=== PATIENT | male | born 1960 | race Caucasian/White ===

== ENCOUNTER 2018-04-25 12:06 | Inpatient (IN) | payer MEDICARE ==
[2018-04-25] VITALS (43 sets, daily range): BP systolic 81–185; BP diastolic 22–133
[~2018-04-25] VITALS: Ht 182.9 cm; Wt 86.2 kg
[2018-04-25] MEDS ORDERED: MIDAZOLAM HCL 2 MG/2 ML VIAL ONE (12:26)
[2018-04-25 12:56] LABS: CHLORIDE 101 mEq/L (98-107)
[2018-04-25 13:00] LABS: BASOPHILS % 0.2 % (0.0-2.0); EOSINOPHILS % 0.1 % (0.0-5.0); ETHANOL BLOOD < 10 mg/dL; HEMOGLOBIN. 13.2 g/dL (14.0-18.0); MEAN CORPUSCULAR HEMOGLOBIN 29.7 pg (28.0-32.0); MEAN CORPUSCULAR VOLUME 92.8 fL (80.0-94.0); MEAN PLATELET VOLUME 8.6 fl (7.4-10.4); MONOCYTES % 11.1 % (2.0-8.0); NEUTROPHILS % 79.6 % (40.0-76.0); PLATELET 295 x1000/uL (130-400); RED BLOOD CELL COUNT 4.42 mill/uL (4.7-6.1); RED CELL DISTRIBUTION WIDTH 14.9 % (11.6-14.6)
[2018-04-25 13:03] LABS: CLARITY URINE CLOUDY (CLEAR); COLOR URINE YELLOW (YELLOW); KETONES URINE TRACE (NEGATIVE); LEUKOCYTE ESTERASE URINE NEGATIVE (NEGATIVE); NITRITE URINE NEGATIVE (NEGATIVE); OCCULT BLOOD URINE 2+ (NEGATIVE); PROTEIN URINE TRACE (NEGATIVE); SPECIFIC GRAVITY URINE 1.024 (1.005-1.030); UROBILINOGEN URINE 0.2 E.U./dL (0.2-1.0)
[2018-04-25] MEDS ORDERED: VECURONIUM BROMIDE 10 MG/VIAL IV NR (13:15)
[2018-04-25] MEDS ORDERED: ETOMIDATE 2MG/ML 10ML VIAL IV NR (13:15)
[2018-04-25] MEDS ORDERED: MIDAZOLAM HCL 50 MG in DEXTROSE 5% WATER 40 ML IV NR (13:15)
[2018-04-25] MEDS ORDERED: CEFTRIAXONE 1 G PREMIX 50 ML IV NR (13:15)
[2018-04-25] MEDS ORDERED: SODIUM CHLORIDE 0.9% 1000ML BAG (SEPSIS BOLUS) IV ONE (13:15)
[2018-04-25 13:17] LABS: *AMPHETAMINES SCREEN URINE NEGATIVE (NEGATIVE); *BARBITURATES SCREEN URINE NEGATIVE (NEGATIVE); *BENZODIAZEPINES SCREEN URINE PRESUMTIVE POSITIVE (NEGATIVE)
[2018-04-25 13:18] LABS: *COCAINE SCREEN URINE NEGATIVE (NEGATIVE); CANNABINOID URINE SCREEN PRESUMTIVE POSITIVE (NEGATIVE); METHADONE URINE SCREEN NEGATIVE (NEGATIVE); OPIATES URINE SCREEN PRESUMTIVE POSITIVE (NEGATIVE); PHENCYCLIDINE URINE SCREEN NEGATIVE (NEGATIVE)
[2018-04-25] MEDS ORDERED: SODIUM CHLORIDE 0.9% 2,730 ML IV SCH (13:30)
[2018-04-25] MEDS ORDERED: VECURONIUM BROMIDE 10 MG/VIAL IV ONE (15:03)
[2018-04-25] MEDS ORDERED: ETOMIDATE 2MG/ML 10ML VIAL IV ONE (15:03)
[2018-04-25] MEDS ORDERED: MIDAZOLAM HCL 100 MG in DEXT 5% WATER 80 ML IV PRN (15:15)
[2018-04-25 15:30] LABS: BG BASE EXCESS -7.5 mmol/L (-2.0-2.0); BG CARBOXYHEMOGLOBIN 0.6 % (0.5-1.5); BG DEOXYHEMOGLOBIN 0.8 % (0.0-5.0); BG FRACTION INSPIRED OXYGEN 100; BG HCO3 ACT 20.4 mmol/L (22.0-26.0); BG METHEMOGLOBIN 0.3 % (0.0-1.5); BG OXYGEN SATURATION 99.2 % (92.0-98.5); BG OXYHEMOGLOBIN 98.3 % (94.0-97.0); BG PCO2 51.2 mmHg (35.0-45.0); BG PH 7.219 (7.350-7.450); BG PO2 299.4 mmHg (75.0-100.0); BG SAMPLE SITE RIGHT RADIAL; BG TIDAL VOLUME(mL) 600 mL; BG VENT MODE VENT - A/C; BG VENT RATE 14 set
[2018-04-25 15:50] LABS: D-DIMER 1.78 mg/L FEU (<0.50); PARTIAL THROMBOPLASTIN TIME 30.1 sec (23.4-31.0); PROTHROMBIN TIME 10.3 sec (9.1-11.1)
[2018-04-25] MEDS: LABETALOL HCL 100MG TABLET NG SCH (16:00)
[2018-04-25] MEDS: MIDAZOLAM HCL 100 MG in DEXT 5% WATER 80 ML IV PRN (16:02)
[2018-04-25] MEDS: FENTANYL CITRATE/PF 500 MCG in SODIUM CHLORIDE 0.9% 40 ML IV PRN (16:02)
[2018-04-25] MEDS ORDERED: IPRATROPIUM/ALBUTEROL 0.5-3(2.5)MG/3ML NEB HHN PRN (16:15)
[2018-04-25] MEDS ORDERED: CEFEPIME 1,000 MG in DEXTROSE 5% WATER 50 ML IV SCH (17:00)
[2018-04-25] MEDS ORDERED: METRONIDAZOLE 500 MG PREMIX 100 ML IV SCH (17:00)
[2018-04-25] MEDS: PIPERACILLIN/TAZ 3.375G PREMIX 50 ML IV SCH (17:08)
[2018-04-25] MEDS: DEXT 5%/0.45% NACL 1000ML 1,000 ML IV SCH (17:08)
[2018-04-25] MEDS ORDERED: NOREPINEPHRINE 4 MG in DEXT 5% WATER 246 ML IV PRN (18:15)
[2018-04-25 18:57] LABS: HEPATITIS A AB IGM NEGATIVE (NEGATIVE)
[2018-04-25] MEDS ORDERED: VANCOMYCIN 2,000 MG in DEXT 5% WATER 400 ML IV NR (19:00)
[2018-04-25 19:01] LABS: HEPATITIS B SURFACE ANTIGEN REACTIVE PEND CONFIR
[2018-04-25] MEDS: IPRATROPIUM/ALBUTEROL 0.5-3(2.5)MG/3ML NEB HHN SCH (20:32)
[2018-04-25] MEDS: BUDESONIDE 0.5MG/2ML NEB HHN SCH (20:32)
[2018-04-26] VITALS (91 sets, daily range): BP systolic 101–148; BP diastolic 63–100
[2018-04-26] MEDS: PIPERACILLIN/TAZ 3.375G PREMIX 50 ML IV SCH ×4 (00:06→17:32)
[2018-04-26] MEDS: FENTANYL CITRATE/PF 500 MCG in SODIUM CHLORIDE 0.9% 40 ML IV PRN ×3 (00:09→19:02)
[2018-04-26] MEDS: DEXT 5%/0.45% NACL 1000ML 1,000 ML IV SCH ×3 (05:34→22:24)
[2018-04-26] MEDS: LABETALOL HCL 100MG TABLET NG SCH ×2 (05:34→17:33)
[2018-04-26] MEDS: ACETYLCYSTEINE 100MG/ML 10% VIAL 4ML INH SCH ×2 (07:38→13:21)
[2018-04-26] MEDS: IPRATROPIUM/ALBUTEROL 0.5-3(2.5)MG/3ML NEB HHN SCH ×3 (07:38→21:13)
[2018-04-26] MEDS: BUDESONIDE 0.5MG/2ML NEB HHN SCH ×2 (07:38→21:14)
[2018-04-26] MEDS: MIDAZOLAM HCL 100 MG in DEXT 5% WATER 80 ML IV PRN (08:28)
[2018-04-26 09:38] LABS: BG BASE EXCESS 3.5 mmol/L (-2.0-2.0); BG CARBOXYHEMOGLOBIN 0.9 % (0.5-1.5); BG DEOXYHEMOGLOBIN 3.9 % (0.0-5.0); BG FRACTION INSPIRED OXYGEN 55; BG HCO3 ACT 28.5 mmol/L (22.0-26.0); BG METHEMOGLOBIN 0.3 % (0.0-1.5); BG OXYGEN SATURATION 96.1 % (92.0-98.5); BG OXYHEMOGLOBIN 94.9 % (94.0-97.0); BG PCO2 44.6 mmHg (35.0-45.0); BG PH 7.423 (7.350-7.450); BG PO2 79.4 mmHg (75.0-100.0); BG SAMPLE SITE RIGHT RADIAL; BG TIDAL VOLUME(mL) 600 mL; BG VENT MODE VENT - A/C; BG VENT RATE 16 set
[2018-04-26] MEDS: FAMOTIDINE 20MG/2ML VIAL IV SCH (12:19)
[2018-04-26] MEDS: ENOXAPARIN 40MG/0.4ML SYR SUBCUT SCH (12:20)
[2018-04-26] MEDS ORDERED: VANCOMYCIN 1 G PREMIX 200 ML IV SCH (13:00)
[2018-04-26] MEDS ORDERED: VANCOMYCIN 1500MG in DEXTROSE 5% WATER 250ML IV SCH (18:00)
[2018-04-27] VITALS (51 sets, daily range): BP systolic 99–155; BP diastolic 65–94
[2018-04-27] MEDS: PIPERACILLIN/TAZ 3.375G PREMIX 50 ML IV SCH ×4 (00:15→13:42)
[2018-04-27] MEDS: IPRATROPIUM/ALBUTEROL 0.5-3(2.5)MG/3ML NEB HHN SCH ×5 (01:02→20:12)
[2018-04-27] MEDS: ACETYLCYSTEINE 100MG/ML 10% VIAL 4ML INH SCH ×2 (01:03→08:47)
[2018-04-27] MEDS: MIDAZOLAM HCL 100 MG in DEXT 5% WATER 80 ML IV PRN (01:46)
[2018-04-27] MEDS: LABETALOL HCL 100MG TABLET NG SCH ×2 (05:59→18:00)
[2018-04-27] MEDS: FENTANYL CITRATE/PF 500 MCG in SODIUM CHLORIDE 0.9% 40 ML IV PRN (06:20)
[2018-04-27 07:12] LABS: BASOPHILS % 0.5 % (0.0-2.0); HEMATOCRIT. 32.2 % (42.0-52.0); HEMOGLOBIN. 10.8 g/dL (14.0-18.0); LYMPHOCYTES % 7.8 % (20.0-50.0); MEAN CORPUSCULAR HEMOGLOBIN 29.8 pg (28.0-32.0); MEAN CORPUSCULAR VOLUME 88.3 fL (80.0-94.0); MEAN PLATELET VOLUME 9.3 fl (7.4-10.4); NEUTROPHILS % 83.7 % (40.0-76.0); PLATELET 160 x1000/uL (130-400); RED BLOOD CELL COUNT 3.64 mill/uL (4.7-6.1); RED CELL DISTRIBUTION WIDTH 14.5 % (11.6-14.6)
[2018-04-27 07:30] LABS: CHLORIDE 106 mEq/L (98-107)
[2018-04-27 07:40] LABS: PHOSPHORUS 1.1 mg/dL (2.5-4.9)
[2018-04-27 08:45] LABS: BG BASE EXCESS 2.9 mmol/L (-2.0-2.0); BG CARBOXYHEMOGLOBIN 0.3 % (0.5-1.5); BG DEOXYHEMOGLOBIN 1.6 % (0.0-5.0); BG FRACTION INSPIRED OXYGEN 50; BG HCO3 ACT 26.3 mmol/L (22.0-26.0); BG METHEMOGLOBIN 0.3 % (0.0-1.5); BG OXYGEN SATURATION 98.4 % (92.0-98.5); BG OXYHEMOGLOBIN 97.8 % (94.0-97.0); BG PCO2 35.8 mmHg (35.0-45.0); BG PH 7.484 (7.350-7.450); BG PO2 127.4 mmHg (75.0-100.0); BG SAMPLE SITE RIGHT RADIAL; BG TIDAL VOLUME(mL) 600 mL; BG VENT MODE VENT - A/C; BG VENT RATE 16 set
[2018-04-27] MEDS: BUDESONIDE 0.5MG/2ML NEB HHN SCH ×2 (08:47→20:12)
[2018-04-27] MEDS: FAMOTIDINE 20MG/2ML VIAL IV SCH ×2 (08:57→20:48)
[2018-04-27 09:08] LABS: HIV SCREEN 4G Non Reactive (Non Reactive)
[2018-04-27] MEDS: DEXT 5%/0.45% NACL 1000ML 1,000 ML IV SCH ×2 (09:41→20:48)
[2018-04-27] MEDS ORDERED: VANCOMYCIN 1250MG in DEXTROSE 5% WATER 250ML IV SCH (12:00)
[2018-04-27] MEDS: ENOXAPARIN 40MG/0.4ML SYR SUBCUT SCH (13:14)
[2018-04-27] MEDS ORDERED: RISPERIDONE 0.25MG TABLET PO SCH (13:52)
[2018-04-27] MEDS ORDERED: POTASSIUM CHLORIDE 20MEQ/PACKET NG NR (13:53)
[2018-04-27 14:06] LABS: BG CARBOXYHEMOGLOBIN 0.4 % (0.5-1.5); BG DEOXYHEMOGLOBIN 3.7 % (0.0-5.0); BG FRACTION INSPIRED OXYGEN 40; BG HCO3 ACT 28.8 mmol/L (22.0-26.0); BG OXYGEN SATURATION 96.3 % (92.0-98.5); BG OXYHEMOGLOBIN 95.9 % (94.0-97.0); BG PCO2 39.3 mmHg (35.0-45.0); BG PH 7.483 (7.350-7.450); BG SAMPLE SITE RIGHT RADIAL; BG TOTAL HEMOGLOBIN 10.9 g/dL (12.0-18.0); BG VENT MODE VENT - CPAP
[2018-04-27] MEDS ORDERED: POTASSIUM PHOS,M-BASIC-D-BASIC 30 MMOL in DEXT 5% WATER 500 ML IV NR (14:30)
[2018-04-27] MEDS ORDERED: RACEPINEPHRINE 2.25% 0.5ML NEB VIAL HHN NR (14:40)
[2018-04-27] MEDS ORDERED: RACEPINEPHRINE 2.25% 0.5ML NEB VIAL HHN PRN (14:45)
[2018-04-27] MEDS ORDERED: HALOPERIDOL 5MG TABLET PO NR (15:15)
[2018-04-27] MEDS ORDERED: HALOPERIDOL LACTATE 5MG/ML VIAL IM NR ×3 (15:30→16:15)
[2018-04-27] MEDS ORDERED: LORAZEPAM 2MG/ML CPJ IV NR (16:15)
[2018-04-27] MEDS ORDERED: DIPHENHYDRAMINE 50MG/ML VIAL IV NR (16:45)
[2018-04-27 17:40] LABS: BG BASE EXCESS 2.9 mmol/L (-2.0-2.0); BG CARBOXYHEMOGLOBIN 0.2 % (0.5-1.5); BG DEOXYHEMOGLOBIN 2.8 % (0.0-5.0); BG FRACTION INSPIRED OXYGEN 100; BG HCO3 ACT 30.6 mmol/L (22.0-26.0); BG METHEMOGLOBIN 0.1 % (0.0-1.5); BG OXYGEN SATURATION 97.2 % (92.0-98.5); BG OXYHEMOGLOBIN 96.9 % (94.0-97.0); BG PCO2 62.8 mmHg (35.0-45.0); BG PH 7.306 (7.350-7.450); BG PO2 112.7 mmHg (75.0-100.0); BG SAMPLE SITE RIGHT RADIAL; BG VENT MODE MASK - NRB
[2018-04-27 19:30] LABS: BG BASE EXCESS 5.2 mmol/L (-2.0-2.0); BG CARBOXYHEMOGLOBIN 0.4 % (0.5-1.5); BG DEOXYHEMOGLOBIN 6.8 % (0.0-5.0); BG FRACTION INSPIRED OXYGEN 40; BG HCO3 ACT 28.9 mmol/L (22.0-26.0); BG METHEMOGLOBIN 0.1 % (0.0-1.5); BG OXYGEN SATURATION 93.2 % (92.0-98.5); BG OXYHEMOGLOBIN 92.7 % (94.0-97.0); BG PH 7.487 (7.350-7.450); BG PO2 62.1 mmHg (75.0-100.0); BG SAMPLE SITE RIGHT RADIAL; BG TIDAL VOLUME(mL) 600 mL; BG TOTAL HEMOGLOBIN 11.4 g/dL (12.0-18.0); BG VENT MODE VENT - A/C; BG VENT RATE 14 set
[2018-04-27] MEDS: VANCOMYCIN 1 G PREMIX 200 ML IV SCH (20:47)
[2018-04-28] VITALS (92 sets, daily range): BP systolic 102–184; BP diastolic 60–100
[2018-04-28] MEDS: PIPERACILLIN/TAZ 3.375G PREMIX 50 ML IV SCH ×4 (00:17→18:23)
[2018-04-28] MEDS: IPRATROPIUM/ALBUTEROL 0.5-3(2.5)MG/3ML NEB HHN SCH ×4 (01:29→21:13)
[2018-04-28] MEDS: ACETYLCYSTEINE 100MG/ML 10% VIAL 4ML INH SCH ×3 (01:30→13:29)
[2018-04-28] MEDS: FENTANYL CITRATE/PF 500 MCG in SODIUM CHLORIDE 0.9% 40 ML IV PRN ×3 (02:32→16:47)
[2018-04-28] MEDS: VANCOMYCIN 1 G PREMIX 200 ML IV SCH ×2 (03:27→12:11)
[2018-04-28] MEDS: DEXT 5%/0.45% NACL 1000ML 1,000 ML IV SCH ×2 (04:48→18:23)
[2018-04-28] MEDS: MIDAZOLAM HCL 100 MG in DEXT 5% WATER 80 ML IV PRN (04:48)
[2018-04-28] MEDS: LABETALOL HCL 100MG TABLET NG SCH ×2 (05:22→18:00)
[2018-04-28 06:05] LABS: CHLORIDE 107 mEq/L (98-107)
[2018-04-28 06:13] LABS: PHOSPHORUS 2.9 mg/dL (2.5-4.9)
[2018-04-28 07:36] LABS: BG BASE EXCESS 5.8 mmol/L (-2.0-2.0); BG CARBOXYHEMOGLOBIN 0.6 % (0.5-1.5); BG DEOXYHEMOGLOBIN 1.2 % (0.0-5.0); BG HCO3 ACT 30.3 mmol/L (22.0-26.0); BG METHEMOGLOBIN 0.1 % (0.0-1.5); BG OXYGEN SATURATION 98.8 % (92.0-98.5); BG OXYHEMOGLOBIN 98.1 % (94.0-97.0); BG PH 7.456 (7.350-7.450); BG PO2 155.1 mmHg (75.0-100.0); BG SAMPLE SITE RIGHT RADIAL; BG TIDAL VOLUME(mL) 600 mL; BG TOTAL HEMOGLOBIN 10.6 g/dL (12.0-18.0); BG VENT MODE VENT - A/C; BG VENT RATE 14 set
[2018-04-28] MEDS: BUDESONIDE 0.5MG/2ML NEB HHN SCH ×2 (07:58→21:15)
[2018-04-28] MEDS: RISPERIDONE 0.25MG TABLET PO SCH (08:46)
[2018-04-28] MEDS: FAMOTIDINE 20MG/2ML VIAL IV SCH ×2 (08:47→23:01)
[2018-04-28] MEDS: ENOXAPARIN 40MG/0.4ML SYR SUBCUT SCH (12:23)
[2018-04-28] MEDS ORDERED: BUDESONIDE 0.5MG/2ML NEB ONE (21:22)
[2018-04-29] VITALS (91 sets, daily range): BP systolic 103–154; BP diastolic 31–98
[2018-04-29] MEDS: PIPERACILLIN/TAZ 3.375G PREMIX 50 ML IV SCH ×4 (00:05→19:04)
[2018-04-29] MEDS: ACETYLCYSTEINE 100MG/ML 10% VIAL 4ML INH SCH ×3 (00:57→14:03)
[2018-04-29] MEDS: IPRATROPIUM/ALBUTEROL 0.5-3(2.5)MG/3ML NEB HHN SCH ×4 (00:57→20:35)
[2018-04-29] MEDS: MIDAZOLAM HCL 100 MG in DEXT 5% WATER 80 ML IV PRN ×2 (01:21→22:57)
[2018-04-29] MEDS: DEXT 5%/0.45% NACL 1000ML 1,000 ML IV SCH ×2 (03:35→11:50)
[2018-04-29] MEDS: FENTANYL CITRATE/PF 500 MCG in SODIUM CHLORIDE 0.9% 40 ML IV PRN ×2 (05:43→16:05)
[2018-04-29] MEDS: LABETALOL HCL 100MG TABLET NG SCH ×2 (05:48→19:05)
[2018-04-29] MEDS: FAMOTIDINE 20MG/2ML VIAL IV SCH ×2 (08:48→21:39)
[2018-04-29] MEDS: RISPERIDONE 0.25MG TABLET PO SCH (08:48)
[2018-04-29 09:15] LABS: BG BASE EXCESS 7.5 mmol/L (-2.0-2.0); BG CARBOXYHEMOGLOBIN 0.9 % (0.5-1.5); BG FRACTION INSPIRED OXYGEN 60; BG HCO3 ACT 31.9 mmol/L (22.0-26.0); BG METHEMOGLOBIN 0.1 % (0.0-1.5); BG PCO2 44.6 mmHg (35.0-45.0); BG PH 7.472 (7.350-7.450); BG PO2 144.5 mmHg (75.0-100.0); BG SAMPLE SITE RIGHT BRACHIAL; BG TIDAL VOLUME(mL) 600 mL; BG VENT MODE VENT - A/C; BG VENT RATE 14 set
[2018-04-29] MEDS: ENOXAPARIN 40MG/0.4ML SYR SUBCUT SCH (13:49)
[2018-04-29] MEDS ORDERED: POTASSIUM CHLORIDE 20MEQ/PACKET PO NR (16:30)
[2018-04-30] VITALS (83 sets, daily range): BP systolic 94–174; BP diastolic 59–101
[2018-04-30] MEDS: PIPERACILLIN/TAZ 3.375G PREMIX 50 ML IV SCH ×5 (00:39→23:21)
[2018-04-30] MEDS: ACETYLCYSTEINE 100MG/ML 10% VIAL 4ML INH SCH ×4 (00:51→22:00)
[2018-04-30] MEDS: IPRATROPIUM/ALBUTEROL 0.5-3(2.5)MG/3ML NEB HHN SCH ×4 (00:51→20:15)
[2018-04-30 06:12] LABS: BASOPHILS % 0.5 % (0.0-2.0); EOSINOPHILS % 0.8 % (0.0-5.0); HEMATOCRIT. 31.8 % (42.0-52.0); HEMOGLOBIN. 10.7 g/dL (14.0-18.0); LYMPHOCYTES % 11.2 % (20.0-50.0); MEAN CORPUSCULAR HEMOGLOBIN 29.9 pg (28.0-32.0); MEAN CORPUSCULAR VOLUME 89.2 fL (80.0-94.0); MEAN PLATELET VOLUME 8.2 fl (7.4-10.4); MONOCYTES % 10.3 % (2.0-8.0); NEUTROPHILS % 77.2 % (40.0-76.0); PLATELET 203 x1000/uL (130-400); RED BLOOD CELL COUNT 3.57 mill/uL (4.7-6.1); RED CELL DISTRIBUTION WIDTH 14.1 % (11.6-14.6)
[2018-04-30 06:15] LABS: CHLORIDE 109 mEq/L (98-107)
[2018-04-30] MEDS: LABETALOL HCL 100MG TABLET NG SCH ×2 (06:22→18:00)
[2018-04-30] MEDS: DEXT 5%/0.45% NACL 1000ML 1,000 ML IV SCH ×3 (06:24→18:18)
[2018-04-30] MEDS: FENTANYL CITRATE/PF 500 MCG in SODIUM CHLORIDE 0.9% 40 ML IV PRN ×2 (06:25→13:01)
[2018-04-30 08:35] LABS: BG BASE EXCESS 2.4 mmol/L (-2.0-2.0); BG CARBOXYHEMOGLOBIN 0.3 % (0.5-1.5); BG DEOXYHEMOGLOBIN 1.4 % (0.0-5.0); BG FRACTION INSPIRED OXYGEN 60; BG HCO3 ACT 26.5 mmol/L (22.0-26.0); BG METHEMOGLOBIN 0.2 % (0.0-1.5); BG OXYGEN SATURATION 98.6 % (92.0-98.5); BG OXYHEMOGLOBIN 98.1 % (94.0-97.0); BG PCO2 39.2 mmHg (35.0-45.0); BG PH 7.448 (7.350-7.450); BG SAMPLE SITE RIGHT RADIAL; BG TIDAL VOLUME(mL) 600 mL; BG TOTAL HEMOGLOBIN 10.9 g/dL (12.0-18.0); BG VENT MODE VENT - A/C; BG VENT RATE 14 set
[2018-04-30] MEDS: FAMOTIDINE 20MG/2ML VIAL IV SCH ×2 (09:27→21:27)
[2018-04-30] MEDS: RISPERIDONE 0.5MG TABLET PO SCH (09:28)
[2018-04-30] MEDS: MIDAZOLAM HCL 100 MG in DEXT 5% WATER 80 ML IV PRN (09:29)
[2018-04-30] MEDS: ENOXAPARIN 40MG/0.4ML SYR SUBCUT SCH (12:54)
[2018-05-01] VITALS (55 sets, daily range): BP systolic 102–177; BP diastolic 61–114
[2018-05-01] MEDS: IPRATROPIUM/ALBUTEROL 0.5-3(2.5)MG/3ML NEB HHN SCH ×4 (02:07→20:32)
[2018-05-01] MEDS: LABETALOL HCL 100MG TABLET NG SCH ×2 (05:44→17:57)
[2018-05-01] MEDS: DEXT 5%/0.45% NACL 1000ML 1,000 ML IV SCH ×2 (05:44→12:11)
[2018-05-01] MEDS: PIPERACILLIN/TAZ 3.375G PREMIX 50 ML IV SCH ×3 (05:44→17:57)
[2018-05-01 06:10] LABS: MEAN CORPUSCULAR HEMOGLOBIN 29.6 pg (28.0-32.0); MEAN CORPUSCULAR VOLUME 88.7 fL (80.0-94.0); PLATELET 228 x1000/uL (130-400); RED BLOOD CELL COUNT 3.73 mill/uL (4.7-6.1); RED CELL DISTRIBUTION WIDTH 14.4 % (11.6-14.6)
[2018-05-01 07:01] LABS: CHLORIDE 107 mEq/L (98-107)
[2018-05-01 08:26] LABS: BG BASE EXCESS 3.7 mmol/L (-2.0-2.0); BG CARBOXYHEMOGLOBIN 0.3 % (0.5-1.5); BG DEOXYHEMOGLOBIN 7.5 % (0.0-5.0); BG FRACTION INSPIRED OXYGEN 40; BG HCO3 ACT 26.6 mmol/L (22.0-26.0); BG METHEMOGLOBIN 0.3 % (0.0-1.5); BG OXYGEN SATURATION 92.5 % (92.0-98.5); BG OXYHEMOGLOBIN 91.9 % (94.0-97.0); BG PCO2 33.9 mmHg (35.0-45.0); BG PH 7.512 (7.350-7.450); BG PO2 63.3 mmHg (75.0-100.0); BG SAMPLE SITE RIGHT RADIAL; BG TIDAL VOLUME(mL) 600 mL; BG TOTAL HEMOGLOBIN 11.2 g/dL (12.0-18.0); BG VENT MODE VENT - A/C; BG VENT RATE 14 set
[2018-05-01] MEDS: RISPERIDONE 0.5MG TABLET PO SCH (09:05)
[2018-05-01] MEDS: FAMOTIDINE 20MG/2ML VIAL IV SCH ×2 (09:05→21:29)
[2018-05-01] MEDS: ENOXAPARIN 40MG/0.4ML SYR SUBCUT SCH (12:10)
[2018-05-01] MEDS: METOCLOPRAMIDE HCL 10MG/2ML VIAL IV SCH ×2 (12:11→17:55)
[2018-05-01 13:19] LABS: BG CARBOXYHEMOGLOBIN 0.3 % (0.5-1.5); BG DEOXYHEMOGLOBIN 15.5 % (0.0-5.0); BG FRACTION INSPIRED OXYGEN 40; BG HCO3 ACT 26.4 mmol/L (22.0-26.0); BG METHEMOGLOBIN 0.1 % (0.0-1.5); BG OXYGEN SATURATION 84.4 % (92.0-98.5); BG OXYHEMOGLOBIN 84.1 % (94.0-97.0); BG PCO2 32.3 mmHg (35.0-45.0); BG PO2 45.5 mmHg (75.0-100.0); BG PRESSURE SUPPORT 8; BG SAMPLE SITE RIGHT RADIAL; BG TOTAL HEMOGLOBIN 11.7 g/dL (12.0-18.0); BG VENT MODE VENT - CPAP
[2018-05-01] MEDS: LORAZEPAM 2MG/ML CPJ IV PRN ×2 (13:30→17:55)
[2018-05-01] MEDS: FENTANYL CITRATE/PF 500 MCG in SODIUM CHLORIDE 0.9% 40 ML IV PRN ×3 (14:45→22:43)
[2018-05-01 17:38] LABS: PLATELET ESTIMATE NORMAL
[2018-05-02] VITALS (66 sets, daily range): BP systolic 94–190; BP diastolic 52–145
[2018-05-02] MEDS: METOCLOPRAMIDE HCL 10MG/2ML VIAL IV SCH ×5 (00:33→23:23)
[2018-05-02] MEDS: PIPERACILLIN/TAZ 3.375G PREMIX 50 ML IV SCH ×4 (00:44→18:14)
[2018-05-02] MEDS: IPRATROPIUM/ALBUTEROL 0.5-3(2.5)MG/3ML NEB HHN SCH ×4 (02:13→20:48)
[2018-05-02] MEDS: FENTANYL CITRATE/PF 500 MCG in SODIUM CHLORIDE 0.9% 40 ML IV PRN ×3 (03:40→16:21)
[2018-05-02] MEDS: LORAZEPAM 2MG/ML CPJ IV PRN (03:54)
[2018-05-02] MEDS: DEXT 5%/0.45% NACL 1000ML 1,000 ML IV SCH ×3 (04:23→18:52)
[2018-05-02] MEDS: LABETALOL HCL 100MG TABLET NG SCH ×2 (06:56→18:00)
[2018-05-02] MEDS: FAMOTIDINE 20MG/2ML VIAL IV SCH ×2 (09:45→21:21)
[2018-05-02] MEDS: RISPERIDONE 0.5MG TABLET PO SCH (09:45)
[2018-05-02 09:46] LABS: BG BASE EXCESS 3.9 mmol/L (-2.0-2.0); BG CARBOXYHEMOGLOBIN 0.3 % (0.5-1.5); BG DEOXYHEMOGLOBIN 3.3 % (0.0-5.0); BG FRACTION INSPIRED OXYGEN 50; BG HCO3 ACT 28.5 mmol/L (22.0-26.0); BG METHEMOGLOBIN 0.3 % (0.0-1.5); BG OXYGEN SATURATION 96.7 % (92.0-98.5); BG OXYHEMOGLOBIN 96.1 % (94.0-97.0); BG PCO2 43.1 mmHg (35.0-45.0); BG PH 7.438 (7.350-7.450); BG PO2 93.2 mmHg (75.0-100.0); BG SAMPLE SITE RIGHT RADIAL; BG TIDAL VOLUME(mL) 600 mL; BG TOTAL HEMOGLOBIN 10.7 g/dL (12.0-18.0); BG VENT MODE VENT - A/C; BG VENT RATE 14 set
[2018-05-02] MEDS: ENOXAPARIN 40MG/0.4ML SYR SUBCUT SCH (13:44)
[2018-05-02] MEDS ORDERED: DIPHENHYDRAMINE 50MG/ML VIAL IV PRN (14:45)
[2018-05-02] MEDS: PROPOFOL 10MG/ML 100ML 100 ML IV PRN ×2 (18:06→23:23)
[2018-05-03] VITALS (79 sets, daily range): BP systolic 97–151; BP diastolic 58–93
[2018-05-03] MEDS: PROPOFOL 10MG/ML 100ML 100 ML IV PRN ×6 (00:38→17:12)
[2018-05-03] MEDS: IPRATROPIUM/ALBUTEROL 0.5-3(2.5)MG/3ML NEB HHN SCH ×4 (01:42→20:39)
[2018-05-03] MEDS: DEXT 5%/0.45% NACL 1000ML 1,000 ML IV SCH ×3 (04:32→23:47)
[2018-05-03] MEDS: LABETALOL HCL 100MG TABLET NG SCH ×2 (06:00→17:12)
[2018-05-03 06:36] LABS: BASOPHILS % 0.4 % (0.0-2.0); EOSINOPHILS % 3.9 % (0.0-5.0); HEMATOCRIT. 32.1 % (42.0-52.0); HEMOGLOBIN. 10.6 g/dL (14.0-18.0); LYMPHOCYTES % 14.7 % (20.0-50.0); MEAN CORPUSCULAR HEMOGLOBIN 29.5 pg (28.0-32.0); MEAN CORPUSCULAR VOLUME 88.9 fL (80.0-94.0); MEAN PLATELET VOLUME 8.7 fl (7.4-10.4); PLATELET 250 x1000/uL (130-400); RED BLOOD CELL COUNT 3.61 mill/uL (4.7-6.1); RED CELL DISTRIBUTION WIDTH 14.1 % (11.6-14.6)
[2018-05-03 06:50] LABS: CHLORIDE 106 mEq/L (98-107)
[2018-05-03] MEDS: METOCLOPRAMIDE HCL 10MG/2ML VIAL IV SCH ×4 (07:04→23:43)
[2018-05-03 08:29] LABS: BG BASE EXCESS 5.3 mmol/L (-2.0-2.0); BG CARBOXYHEMOGLOBIN 0.6 % (0.5-1.5); BG DEOXYHEMOGLOBIN 2.2 % (0.0-5.0); BG FRACTION INSPIRED OXYGEN 50; BG HCO3 ACT 29.9 mmol/L (22.0-26.0); BG METHEMOGLOBIN 0.2 % (0.0-1.5); BG OXYGEN SATURATION 97.8 % (92.0-98.5); BG PCO2 43.9 mmHg (35.0-45.0); BG PH 7.451 (7.350-7.450); BG PRESSURE SUPPORT 14; BG SAMPLE SITE RIGHT RADIAL; BG TIDAL VOLUME(mL) 500 mL; BG TOTAL HEMOGLOBIN 10.9 g/dL (12.0-18.0); BG VENT MODE VENT - SIMV; BG VENT RATE 12 set
[2018-05-03] MEDS: FAMOTIDINE 20MG/2ML VIAL IV SCH ×2 (08:59→22:40)
[2018-05-03] MEDS: RISPERIDONE 0.5MG TABLET PO SCH (08:59)
[2018-05-03] MEDS: ENOXAPARIN 40MG/0.4ML SYR SUBCUT SCH (12:45)
[2018-05-03] MEDS: RISPERIDONE 1MG TABLET PO SCH (17:12)
[2018-05-04] VITALS (46 sets, daily range): BP systolic 100–185; BP diastolic 56–120
[2018-05-04] MEDS: PROPOFOL 10MG/ML 100ML 100 ML IV PRN ×3 (00:44→10:08)
[2018-05-04] MEDS: IPRATROPIUM/ALBUTEROL 0.5-3(2.5)MG/3ML NEB HHN SCH ×4 (02:16→22:06)
[2018-05-04 05:41] LABS: BASOPHILS % 0.4 % (0.0-2.0); EOSINOPHILS % 2.7 % (0.0-5.0); HEMATOCRIT. 32.1 % (42.0-52.0); HEMOGLOBIN. 10.6 g/dL (14.0-18.0); LYMPHOCYTES % 16.5 % (20.0-50.0); MEAN CORPUSCULAR VOLUME 87.8 fL (80.0-94.0); MEAN PLATELET VOLUME 8.6 fl (7.4-10.4); NEUTROPHILS % 71.4 % (40.0-76.0); PLATELET 316 x1000/uL (130-400); RED BLOOD CELL COUNT 3.66 mill/uL (4.7-6.1)
[2018-05-04 05:47] LABS: CHLORIDE 109 mEq/L (98-107)
[2018-05-04] MEDS: LABETALOL HCL 100MG TABLET NG SCH ×2 (06:00→17:53)
[2018-05-04] MEDS: METOCLOPRAMIDE HCL 10MG/2ML VIAL IV SCH ×4 (06:34→23:41)
[2018-05-04 08:55] LABS: BG BASE EXCESS 4.2 mmol/L (-2.0-2.0); BG CARBOXYHEMOGLOBIN 0.6 % (0.5-1.5); BG DEOXYHEMOGLOBIN 3.6 % (0.0-5.0); BG FRACTION INSPIRED OXYGEN 40; BG HCO3 ACT 28.9 mmol/L (22.0-26.0); BG METHEMOGLOBIN 0.3 % (0.0-1.5); BG OXYGEN SATURATION 96.4 % (92.0-98.5); BG OXYHEMOGLOBIN 95.5 % (94.0-97.0); BG PCO2 43.7 mmHg (35.0-45.0); BG PH 7.439 (7.350-7.450); BG PO2 85.7 mmHg (75.0-100.0); BG SAMPLE SITE RIGHT RADIAL; BG TIDAL VOLUME(mL) 500 mL; BG TOTAL HEMOGLOBIN 15.4 g/dL (12.0-18.0); BG VENT MODE VENT - A/C; BG VENT RATE 10 set
[2018-05-04] MEDS: RISPERIDONE 1MG TABLET PO SCH ×2 (09:01→17:53)
[2018-05-04] MEDS: FAMOTIDINE 20MG/2ML VIAL IV SCH ×2 (09:01→20:45)
[2018-05-04] MEDS: DEXT 5%/0.45% NACL 1000ML 1,000 ML IV SCH ×2 (10:19→21:19)
[2018-05-04] MEDS ORDERED: PROPOFOL 10MG/ML 100ML 100 ML IV PRN (10:50)
[2018-05-04 13:08] LABS: BG BASE EXCESS 4.1 mmol/L (-2.0-2.0); BG CARBOXYHEMOGLOBIN 0.4 % (0.5-1.5); BG CPAP (cmH2O) 0 cm(H2O); BG DEOXYHEMOGLOBIN 2.9 % (0.0-5.0); BG HCO3 ACT 28.5 mmol/L (22.0-26.0); BG METHEMOGLOBIN 0.2 % (0.0-1.5); BG OXYGEN SATURATION 97.1 % (92.0-98.5); BG OXYHEMOGLOBIN 96.5 % (94.0-97.0); BG PCO2 41.7 mmHg (35.0-45.0); BG PH 7.452 (7.350-7.450); BG PO2 90.7 mmHg (75.0-100.0); BG SAMPLE SITE RIGHT RADIAL; BG TOTAL HEMOGLOBIN 11.1 g/dL (12.0-18.0); BG VENT MODE VENT - CPAP
[2018-05-04] MEDS ORDERED: LORAZEPAM 2MG/ML CPJ IV PRN (14:15)
[2018-05-04] MEDS ORDERED: LORAZEPAM 2MG/ML CPJ IV NR (14:19)
[2018-05-04] MEDS ORDERED: HALOPERIDOL LACTATE 5MG/ML VIAL IM PRN (14:30)
[2018-05-04] MEDS: ENOXAPARIN 40MG/0.4ML SYR SUBCUT SCH (14:39)
[2018-05-04 16:55] LABS: BG BASE EXCESS 4.2 mmol/L (-2.0-2.0); BG CARBOXYHEMOGLOBIN 0.3 % (0.5-1.5); BG DEOXYHEMOGLOBIN 5.9 % (0.0-5.0); BG FRACTION INSPIRED OXYGEN 80; BG METHEMOGLOBIN 0.1 % (0.0-1.5); BG OXYGEN SATURATION 94.1 % (92.0-98.5); BG OXYHEMOGLOBIN 93.7 % (94.0-97.0); BG PCO2 44.4 mmHg (35.0-45.0); BG PH 7.433 (7.350-7.450); BG SAMPLE SITE RIGHT RADIAL; BG VENT MODE MASK - AEROSOL
[2018-05-04] MEDS ORDERED: RISPERIDONE 1MG TABLET PO NR (20:00)
[2018-05-05] VITALS (49 sets, daily range): BP systolic 127–164; BP diastolic 61–104
[2018-05-05] MEDS: IPRATROPIUM/ALBUTEROL 0.5-3(2.5)MG/3ML NEB HHN SCH ×4 (01:57→20:16)
[2018-05-05] MEDS: METOCLOPRAMIDE HCL 10MG/2ML VIAL IV SCH ×4 (05:13→23:21)
[2018-05-05] MEDS: LABETALOL HCL 100MG TABLET NG SCH ×2 (05:14→18:34)
[2018-05-05] MEDS ORDERED: RISPERIDONE 1MG TABLET PO SCH (09:00)
[2018-05-05] MEDS: RISPERIDONE 1MG TABLET PO SCH (09:46)
[2018-05-05] MEDS: FAMOTIDINE 20MG/2ML VIAL IV SCH ×2 (09:46→20:15)
[2018-05-05] MEDS: DEXT 5%/0.45% NACL 1000ML 1,000 ML IV SCH (10:07)
[2018-05-05] MEDS: ENOXAPARIN 40MG/0.4ML SYR SUBCUT SCH (14:21)
[2018-05-05] MEDS: RISPERIDONE 1MG TABLET NG SCH (19:00)
[2018-05-05] MEDS ORDERED: TAMSULOSIN HCL 0.4MG SR CAPSULE PO NR (20:30)
[2018-05-06] VITALS (45 sets, daily range): BP systolic 86–173; BP diastolic 52–102
[2018-05-06] MEDS: IPRATROPIUM/ALBUTEROL 0.5-3(2.5)MG/3ML NEB HHN SCH ×4 (01:31→20:49)
[2018-05-06] MEDS: LABETALOL HCL 100MG TABLET NG SCH ×2 (06:09→17:35)
[2018-05-06] MEDS: METOCLOPRAMIDE HCL 10MG/2ML VIAL IV SCH ×3 (06:09→17:34)
[2018-05-06] MEDS: FAMOTIDINE 20MG/2ML VIAL IV SCH ×2 (10:00→21:55)
[2018-05-06] MEDS: LISINOPRIL 10MG TABLET PO SCH (10:00)
[2018-05-06] MEDS: RISPERIDONE 1MG TABLET PO SCH (10:00)
[2018-05-06] MEDS: SERTRALINE HCL 100MG TABLET NG SCH (10:00)
[2018-05-06] MEDS: ENOXAPARIN 40MG/0.4ML SYR SUBCUT SCH (17:34)
[2018-05-06] MEDS: RISPERIDONE 1MG TABLET NG SCH (17:34)
[2018-05-06] MEDS: TAMSULOSIN HCL 0.4MG SR CAPSULE PO SCH (21:56)
[2018-05-07] MEDS: METOCLOPRAMIDE HCL 10MG/2ML VIAL IV SCH ×4 (00:03→17:43)
[2018-05-07 00:55] VITALS: BP 143/84
[2018-05-07] MEDS: IPRATROPIUM/ALBUTEROL 0.5-3(2.5)MG/3ML NEB HHN SCH ×3 (01:28→15:30)
[2018-05-07] MEDS ORDERED: ATOR-2 PO (01:45)
[2018-05-07] MEDS ORDERED: HYDR-4009 PO (01:45)
[2018-05-07] MEDS ORDERED: MORP30TA66 PO (01:45)
[2018-05-07 04:00] VITALS: BP 123/85
[2018-05-07] MEDS: LABETALOL HCL 100MG TABLET NG SCH ×2 (05:56→17:44)
[2018-05-07 08:00] VITALS: BP 127/70
[2018-05-07] MEDS: FAMOTIDINE 20MG/2ML VIAL IV SCH ×2 (08:59→21:21)
[2018-05-07] MEDS: RISPERIDONE 1MG TABLET PO SCH (08:59)
[2018-05-07] MEDS: SERTRALINE HCL 100MG TABLET NG SCH (08:59)
[2018-05-07] MEDS: LISINOPRIL 10MG TABLET PO SCH (09:03)
[2018-05-07 12:00] VITALS: BP_SYST 113; BP_DIAS 3; BP_DIAS 73
[2018-05-07] MEDS: ENOXAPARIN 40MG/0.4ML SYR SUBCUT SCH (12:42)
[2018-05-07 16:00] VITALS: BP 94/59
[2018-05-07] MEDS: RISPERIDONE 1MG TABLET NG SCH (17:36)
[2018-05-07] MEDS: LACTOBACILLUS GG CAPSULE PO SCH (17:44)
[2018-05-07 20:00] VITALS: BP 117/69
[2018-05-07] MEDS: TAMSULOSIN HCL 0.4MG SR CAPSULE PO SCH (21:21)
[2018-05-08] VITALS: BP 125/88
[2018-05-08] MEDS: METOCLOPRAMIDE HCL 10MG/2ML VIAL IV SCH ×3 (00:43→13:59)
[2018-05-08 04:00] VITALS: BP 120/80
[2018-05-08] MEDS: LABETALOL HCL 100MG TABLET NG SCH (05:54)
[2018-05-08] MEDS: IPRATROPIUM/ALBUTEROL 0.5-3(2.5)MG/3ML NEB HHN SCH ×3 (07:59→20:26)
[2018-05-08 08:45] VITALS: BP 122/72
[2018-05-08] MEDS: LACTOBACILLUS GG CAPSULE PO SCH (09:00)
[2018-05-08] MEDS: RISPERIDONE 1MG TABLET PO SCH (09:55)
[2018-05-08] MEDS: LISINOPRIL 10MG TABLET PO SCH (09:55)
[2018-05-08] MEDS: SERTRALINE HCL 100MG TABLET NG SCH (09:55)
[2018-05-08] MEDS: FAMOTIDINE 20MG/2ML VIAL IV SCH ×2 (10:02→21:48)
[2018-05-08 12:27] VITALS: BP 110/77
[2018-05-08] MEDS: ENOXAPARIN 40MG/0.4ML SYR SUBCUT SCH (13:59)
[2018-05-08 16:00] VITALS: BP 105/73
[2018-05-08] MEDS: RISPERIDONE 1MG TABLET NG SCH (17:54)
[2018-05-08 20:00] VITALS: BP 111/71
[2018-05-08] MEDS: TAMSULOSIN HCL 0.4MG SR CAPSULE PO SCH (21:48)
[2018-05-09 00:07] VITALS: BP 85/58
[2018-05-09 00:20] VITALS: BP 96/57
[2018-05-09 00:40] VITALS: BP 111/62
[2018-05-09] MEDS: IPRATROPIUM/ALBUTEROL 0.5-3(2.5)MG/3ML NEB HHN SCH ×2 (01:27→08:41)
[2018-05-09 04:00] VITALS: BP 122/78
[2018-05-09] MEDS: LABETALOL HCL 100MG TABLET NG SCH (06:00)
[2018-05-09 09:28] VITALS: BP 123/82
[2018-05-10 13:06] LABS: HBSAG CONFIRMATION Positive (.); HBSAG SCREEN Confirm. indicated (Negative)
[2018-05-16 10:43] LABS: HBSAG CONFIRMATION Positive (.); HBSAG SCREEN Confirm. indicated (Negative)
== END 2018-05-09 09:45 | disposition home or self-care (01) | DRG 870 ==
LOC: ER 12:06 → MICUNO 13:17 → EDBEDREQTM 13:19 → EDBEDREQ 13:19 → ENRESERV 13:24 → CANRESERV 13:24 → ENRESERV 13:31 → 6WST 05-07 00:55
PROVIDERS: ADMIT Internal Medicine; ATTEND Internal Medicine
PROC: 5A1955Z Respiratory Ventilation, Greater than 96 Consecutive Hours (ICD-10-PCS; principal; 2018-04-25)
PROC: 0BH17EZ Insertion of Endotracheal Airway into Trachea, Via Natural or Artificial Opening (ICD-10-PCS; 2018-04-25)
PROC: 0CJS8ZZ Inspection of Larynx, Via Natural or Artificial Opening Endoscopic (ICD-10-PCS; 2018-04-25)
DX: A41.59 Other Gram-negative sepsis (principal); G92 Toxic encephalopathy; J69.0 Pneumonitis due to inhalation of food and vomit; J96.00 Acute respiratory failure, unspecified whether with hypoxia or hypercapnia; K72.00 Acute and subacute hepatic failure without coma; N17.9 Acute kidney failure, unspecified; J44.1 Chronic obstructive pulmonary disease with (acute) exacerbation; J98.11 Atelectasis; Z99.11 Dependence on respirator [ventilator] status; F32.9 Major depressive disorder, single episode, unspecified; R26.2 Difficulty in walking, not elsewhere classified; D69.6 Thrombocytopenia, unspecified; D64.9 Anemia, unspecified; F12.90 Cannabis use, unspecified, uncomplicated; F17.210 Nicotine dependence, cigarettes, uncomplicated; F29 Unspecified psychosis not due to a substance or known physiological condition; I10 Essential (primary) hypertension; I25.10 Atherosclerotic heart disease of native coronary artery without angina pectoris; K21.9 Gastro-esophageal reflux disease without esophagitis; Z78.1 Physical restraint status; Z85.118 Personal history of other malignant neoplasm of bronchus and lung; Z87.820 Personal history of traumatic brain injury; I25.2 Old myocardial infarction; Z95.1 Presence of aortocoronary bypass graft; Z92.21 Personal history of antineoplastic chemotherapy
CPT/HCPCS: 31500; 36415; 36600; 71045; 76700; 78580; 80048; 80202; 80305; 82375; 82805; 82962; 83605; 83735; 83880; 84100; 84478; 85007; 85027; 85379; 86705; 86709; 86803; 87070; 87077; 87186; 87340; 87389; 87804; 92610; 93005; 93970; 94003; 94640; 94667; 96374; 96375; 97116; 97162; 97164; 97166; 97530; 97535; 99285; A6261; G0482; J0692; J1200; J1630; J1650; J2060; J2250; J2543; J2704; J2765; J3010; J3370; J3490; J7042; J7050; J7060; J7608; J7620; J7626